=== PATIENT | male | born 1980 | race Caucasian/White ===

== ENCOUNTER 2017-04-19 20:10 | Emergency (ER) | payer BC ==
[2017-04-19] MEDS: IBUPROFEN 800 MG TAB PO (21:43)
== END 2017-04-19 23:52 | disposition home or self-care (01) ==
LOC: FTE 20:10
DX: S99.922A Unspecified injury of left foot, initial encounter (principal); V23.4XXA Motorcycle driver injured in collision with car, pick-up truck or van in traffic accident, initial encounter
CPT/HCPCS: 73562; 73630-LT; 99283-25

== ENCOUNTER 2017-06-23 01:22 | Emergency (ER) | payer BC | END 2017-06-23 05:24 | disposition home or self-care (01) | LOC: FTE 01:22 | DX: H92.01 Otalgia, right ear (principal) | CPT/HCPCS: 99283 ==